=== PATIENT | female | born 1945 | race Caucasian/White ===

== ENCOUNTER 2017-02-13 15:20 | Emergency (ER) | payer MEDICARE, OTHER ==
[~2017-02-13] VITALS: Ht 154.9 cm; Wt 55.5 kg
[2017-02-13 15:38] VITALS: BP 101/59; PULSE 85; RESP 12; TEMP 97.7; O2SAT 96
--- NOTE | 2017-02-13 16:31 | PD ---
HPI Chief Complaint: Psychiatric Symptoms Time Seen by Provider: 15:54 Travel History International Travel<30 days: No Contact w/Intl Traveler<30days: No Traveled to known affect area: No History of Present Illness HPI 71-year-old female presents to the emergency Department under Burd[place] act by local police. Apparently, the patient states she got into an argument with her son and stated that she wished she was . However, she states she stated this out of anger and did not mean it. She denies any suicidal or homicidal ideation. On exam, Patient has ecchymosis to the right upper eyelid. She states that she fell and hit her head against a counter a few days ago. She denies any LOC or pain. Patient denies take any anticoagulants. She does not wish for this to be examined. Patient states she drinks 2 vodka drinks daily. She denies any illicit drug use. She has no medical complaints at this time. PFSH Past Medical History Anxiety: Yes Depression: Yes High Cholesterol: Yes Hypertension: Yes Thyroid Disease: Yes Tetanus Vaccination: > 5 Years Influenza Vaccination: Yes Menopausal: Yes : 3 Para: 2 Miscarriage: 1 : 0 Past Surgical History Appendectomy: Yes Hysterectomy: Yes Tonsillectomy: Yes Family History Family Myocardial Infarction: Yes Family Hypercholesterolemia: Yes Social History Alcohol Use: Yes Tobacco Use: Yes (1 PPD) Substance Use: No Allergies-Medications (Allergen,Severity, Reaction): Coded Allergies: No Known Allergies (Unverified , 02/13/17) Review of Systems Except as stated in HPI: all other systems reviewed are Neg Physical Exam Narrative GENERAL: Well-nourished, well-developed female patient, Afebrile. SKIN: Focused skin assessment warm/dry. Patient has ecchymosis to right upper eyelid/orbit. HEAD: Normocephalic. EYES: No scleral icterus. No injection or drainage. NECK: Supple, trachea midline. No JVD or lymphadenopathy. CARDIOVASCULAR: Regular rate and rhythm without murmurs, gallops, or rubs. RESPIRATORY: Breath sounds equal bilaterally. No accessory muscle use. Lungs sounds are clear to auscultation. GASTROINTESTINAL: Abdomen soft, non-tender, nondistended. MUSCULOSKELETAL: No cyanosis, or edema. PSYCHIATRIC: No delusional thought processes. No hallucinations. Data Data Last Documented VS Vital Signs Date Time Temp Pulse Resp B/P (MAP) Pulse Ox O2 Delivery O2 Flow Rate FiO2 02/13/17 15:38 97.7 85 12 101/59 (73) 96 Orders Orders Complete Blood Count With Diff (02/13/17 15:53) Comprehensive Metabolic Panel (02/13/17 15:53) Psych Screen (02/13/17 15:53) Drug Screen, Random Urine (02/13/17 15:53) Alcohol (Ethanol) (02/13/17 15:53) Salicylates (Aspirin) (02/13/17 15:53) Tylenol (Acetaminophen) (02/13/17 15:53) Urinalysis - C+S If Indicated (02/13/17 15:54) Diet Regular Basic (02/13/17 Dinner) Nicotine 7 Mg Patch.24 Hr (Habitrol 7 M (02/13/17 17:30) Urine Culture (02/13/17 19:02) Labs Laboratory Tests Test 02/13/17 16:30 02/13/17 19:02 White Blood Count 7.2 TH/MM3 Red Blood Count 5.02 MIL/MM3 Hemoglobin 15.8 GM/DL Hematocrit 47.4 % Mean Corpuscular Volume 94.5 FL Mean Corpuscular Hemoglobin 31.5 PG Mean Corpuscular Hemoglobin Concent 33.4 % Red Cell Distribution Width 15.4 % Platelet Count 278 TH/MM3 Mean Platelet Volume 8.6 FL Neutrophils (%) (Auto) 59.0 % Lymphocytes (%) (Auto) 34.6 % Monocytes (%) (Auto) 2.8 % Eosinophils (%) (Auto) 2.4 % Basophils (%) (Auto) 1.2 % Neutrophils # (Auto) 4.2 TH/MM3 Lymphocytes # (Auto) 2.5 TH/MM3 Monocytes # (Auto) 0.2 TH/MM3 Eosinophils # (Auto) 0.2 TH/MM3 Basophils # (Auto) 0.1 TH/MM3 CBC Comment DIFF FINAL Differential Comment Blood Urea Nitrogen 18 MG/DL Creatinine 0.99 MG/DL Random Glucose 136 MG/DL Total Protein 8.2 GM/DL Albumin 3.9 GM/DL Calcium Level 9.0 MG/DL Alkaline Phosphatase 80 U/L Aspartate Amino Transf (AST/SGOT) 20 U/L Alanine Aminotransferase (ALT/SGPT) 14 U/L Total Bilirubin 0.3 MG/DL Sodium Level 139 MEQ/L Potassium Level 4.0 MEQ/L Chloride Level 101 MEQ/L Carbon Dioxide Level 28.0 MEQ/L Anion Gap 10 MEQ/L Estimat Glomerular Filtration Rate 55 ML/MIN Salicylates Level 3.0 MG/DL Acetaminophen Level LESS THAN 2.0 MCG/ML Ethyl Alcohol Level 141 MG/DL Urine Color YELLOW Urine Turbidity CLOUDY Urine pH 5.5 Urine Specific [place] 1.024 Urine Protein TRACE mg/dL Urine Glucose (UA) NEG mg/dL Urine Ketones NEG mg/dL Urine Occult Blood TRACE Urine Nitrite NEG Urine Bilirubin NEG Urine Urobilinogen LESS THAN 2.0 MG/DL Urine Leukocyte Esterase SMALL Urine RBC 2 /hpf Urine WBC 12 /hpf Urine Squamous Epithelial Cells 29 /hpf Urine Bacteria MOD /hpf Urine Mucus MOD /lpf Microscopic Urinalysis Comment CULTURE INDICATED Urine Opiates Screen NEG Urine Barbiturates Screen NEG Urine Amphetamines Screen NEG Urine Benzodiazepines Screen NEG Urine Cocaine Screen NEG Urine Cannabinoids Screen NEG MDM Medical Decision Making Medical Screen Exam Complete: Yes Emergency Medical Condition: Yes Medical Record Reviewed: Yes Differential Diagnosis Depression versus anxiety versus medical clearance Narrative Course 71-year-old female presents to the emergency Department under Burdick act by local police. Patient denies suicidal or homicidal ideation. She has no medical complaints at this time. CBC, CMP, salicylate level, acetaminophen level, alcohol level, urine drug screen, UA are ordered and pending. CBC shows no acute abnormality. CMP shows no acute abnormality. Salicylate level is 3.0. Acetaminophen level is less than 2.0. Alcohol level is 141. UDS is negative. UA shows cloudy urine, trace occult blood, small leukocyte esterase, 12 WBC. However, significantly contaminated with 29 squamous epithelial cells. Patient is given Macrobid 100 mg by mouth. Patient is medically cleared for psychiatric screening and disposition. Mental health screening discussed with the patient. Psychiatric screen ordered. Diagnosis Primary Impression: Medical clearance for psychiatric admission Additional Instructions: Patient is medically cleared for psychiatric screening and disposition Condition: Stable Zaira Cleveland Feb 13, 2017 16:30
[2017-02-13 16:42] LABS: AUTOMATED NEUTROPHIL # 4.2 TH/MM3 (1.8-7.7); BASOPHIL # 0.1 TH/MM3 (0-0.2); BASOPHIL % 1.2 % (0.0-2.0); EOSINOPHIL # 0.2 TH/MM3 (0-0.4); EOSINOPHIL % 2.4 % (0.0-4.0); HEMATOCRIT 47.4 % (35.0-46.0); HEMO FLAGS DIFF FINAL; LYMPH % 34.6 % (9.0-44.0); LYMPHOCYTE # 2.5 TH/MM3 (1.0-4.8); MEAN CELL VOLUME 94.5 FL (80.0-100.0); MEAN CORPUSCULAR HEMOGLOBIN 31.5 PG (27.0-34.0); MEAN CORPUSCULAR HGB CONC 33.4 % (32.0-36.0); MONO % 2.8 % (0.0-8.0); PLATELET COUNT 278 TH/MM3 (150-450); RED BLOOD COUNT 5.02 MIL/MM3 (4.00-5.30); RED CELL DISTRIBUTION WIDTH 15.4 % (11.6-17.2); WHITE BLOOD COUNT 7.2 TH/MM3 (4.0-11.0)
[2017-02-13 17:04] LABS: ALT (GPT) 14 U/L (10-53); ANION GAP 10 MEQ/L (5-15); AST (GOT) 20 U/L (15-37); BLOOD UREA NITROGEN 18 MG/DL (7-18); CHLORIDE 101 MEQ/L (98-107); GLOMERULAR FILTRATION RATE 55 ML/MIN (>89); SODIUM (NA) 139 MEQ/L (136-145)
[2017-02-13 17:06] LABS: ALKALINE PHOSPHATASE 80 U/L (45-117); TOTAL BILIRUBIN ADULT 0.3 MG/DL (0.2-1.0)
[2017-02-13 17:09] LABS: ALCOHOL 141 MG/DL (0-5)
[2017-02-13 17:10] LABS: ACETAMINOPHEN LESS THAN 2.0 MCG/ML (10.0-30.0)
[2017-02-13] MEDS ORDERED: NICOTINE 7 MG/24 HR PATCH T-DERMAL ONE (17:30)
[2017-02-13 19:54] LABS: BACTERIA, URINE MOD /hpf; BLOOD, URINE TRACE (NEG); COMMENT (UR) CULTURE INDICATED; CULTURE IF INDICATED CULTURE INDICATED; GLUCOSE,URINE NEG (NEG); KETONE, URINE NEG (NEG); MUCUS URINE MOD /lpf (OCC); NITRITE,URINE NEG (NEG); PH, URINE 5.5 (5.0-8.5); SQUAMOUS EPITHELIAL CELL URINE 29 /hpf (0-5); URINE COLOR YELLOW (YELLW/STRAW)
[2017-02-13] MEDS ORDERED: NITROFURANTOIN MONOHYD MACROCR 100 MG CAP PO ONE (20:15)
[2017-02-13 21:08] VITALS: BP 176/76; PULSE 68; RESP 18; O2SAT 98
[2017-02-13 22:19] VITALS: BP 190/75; PULSE 65; RESP 18; O2SAT 96
[2017-02-13] MEDS ORDERED: SPIRCAP INH (22:29)
[2017-02-13] MEDS ORDERED: GABA300C5 PO (22:29)
[2017-02-13] MEDS ORDERED: DULO1CAP2 PO (22:29)
[2017-02-13] MEDS ORDERED: FLUT1INH7 INH (22:29)
[2017-02-13] MEDS ORDERED: TRIAM.1%T TOPICAL (22:29)
[2017-02-13] MEDS ORDERED: ALBUAER3 INH (22:29)
[2017-02-13] MEDS ORDERED: ROPI2TAB PO (22:29)
[2017-02-13] MEDS ORDERED: IBUP-232 PO (22:29)
[2017-02-13] MEDS ORDERED: CLOB0.055 TOPICAL (22:29)
[2017-02-13] MEDS ORDERED: ISOS20TA PO (22:29)
[2017-02-13] MEDS ORDERED: LEVO50TA4 PO (22:29)
[2017-02-14 02:31] VITALS: BP 135/63; PULSE 75; RESP 18; O2SAT 95
[2017-02-14 06:39] VITALS: BP 189/90; PULSE 68; RESP 19; O2SAT 96
--- NOTE | 2017-02-14 08:25 | RADRPT ---
EXAM DATE/TIME: 02/14/2017 07:53 [facility] COMPARISON: No previous studies available for comparison. INDICATIONS : Right leg pain. MEDICAL HISTORY : Hypercholesterolemia. Hypertension. SURGICAL HISTORY : Tonsillectomy. Appendectomy. Hysterectomy. ENCOUNTER: Initial ACUITY: 1 day PAIN SCORE: 5/10 LOCATION: Right leg. TECHNIQUE: Venous ultrasound of the leg was performed from the inguinal ligament to the proximal calf. Real-jen e, color Doppler and spectral tracing, compression and augmentation techniques were used. FINDINGS: There is normal compressibility of the deep venous system from the inguinal region to the proximal ca lf. No echogenic clot is seen in the lumen of the common femoral, femoral, popliteal, and posterior tibial veins. There is a normal response of the venous system to proximal and distal augmentation an d respiration. CONCLUSION: Normal examination. No evidence of DVT Alfredo Marie MD on February 14, 2017 at 8:23 Board Certified Radiologist. This report was verified electronically.
--- NOTE | 2017-02-14 09:34 | PD ---
Physical Exam Date Seen by Provider: Feb 14, 2017 Time Seen by Provider: 09:31 Narrative 71 yr old female here for psychiatric issues. I was asked by the nurse to check on patient's right leg as she has pain and hx of DVT. She reports pain in the right calf and says it feels tight. Refer to her H&P from the previous provider for full details of her current hospital visit. Data Data Last Documented VS Vital Signs Date Time Temp Pulse Resp B/P (MAP) Pulse Ox O2 Delivery O2 Flow Rate FiO2 02/14/17 12:15 02/14/17 06:39 68 19 96 Room Air 02/13/17 15:38 97.7 Orders Orders Complete Blood Count With Diff (02/13/17 15:53) Comprehensive Metabolic Panel (02/13/17 15:53) Psych Screen (02/13/17 15:53) Drug Screen, Random Urine (02/13/17 15:53) Alcohol (Ethanol) (02/13/17 15:53) Salicylates (Aspirin) (02/13/17 15:53) Tylenol (Acetaminophen) (02/13/17 15:53) Urinalysis - C+S If Indicated (02/13/17 15:54) Diet Regular Basic (02/13/17 Dinner) Nicotine 7 Mg Patch.24 Hr (Habitrol 7 M (02/13/17 17:30) Urine Culture (02/13/17 19:02) Nitrofurantoin Monohyd Macrocr (Macrobid (02/13/17 20:15) Ropinirole Hcl (Requip) (02/13/17 23:00) Diet Regular Basic (02/14/17 Breakfast) Us Leg Venous Doppler (02/14/17 07:26) Labs Laboratory Tests Test 02/13/17 16:30 02/13/17 19:02 White Blood Count 7.2 TH/MM3 Red Blood Count 5.02 MIL/MM3 Hemoglobin 15.8 GM/DL Hematocrit 47.4 % Mean Corpuscular Volume 94.5 FL Mean Corpuscular Hemoglobin 31.5 PG Mean Corpuscular Hemoglobin Concent 33.4 % Red Cell Distribution Width 15.4 % Platelet Count 278 TH/MM3 Mean Platelet Volume 8.6 FL Neutrophils (%) (Auto) 59.0 % Lymphocytes (%) (Auto) 34.6 % Monocytes (%) (Auto) 2.8 % Eosinophils (%) (Auto) 2.4 % Basophils (%) (Auto) 1.2 % Neutrophils # (Auto) 4.2 TH/MM3 Lymphocytes # (Auto) 2.5 TH/MM3 Monocytes # (Auto) 0.2 TH/MM3 Eosinophils # (Auto) 0.2 TH/MM3 Basophils # (Auto) 0.1 TH/MM3 CBC Comment DIFF FINAL Differential Comment Blood Urea Nitrogen 18 MG/DL Creatinine 0.99 MG/DL Random Glucose 136 MG/DL Total Protein 8.2 GM/DL Albumin 3.9 GM/DL Calcium Level 9.0 MG/DL Alkaline Phosphatase 80 U/L Aspartate Amino Transf (AST/SGOT) 20 U/L Alanine Aminotransferase (ALT/SGPT) 14 U/L Total Bilirubin 0.3 MG/DL Sodium Level 139 MEQ/L Potassium Level 4.0 MEQ/L Chloride Level 101 MEQ/L Carbon Dioxide Level 28.0 MEQ/L Anion Gap 10 MEQ/L Estimat Glomerular Filtration Rate 55 ML/MIN Salicylates Level 3.0 MG/DL Acetaminophen Level LESS THAN 2.0 MCG/ML Ethyl Alcohol Level 141 MG/DL Urine Color YELLOW Urine Turbidity CLOUDY Urine pH 5.5 Urine Specific [place] 1.024 Urine Protein TRACE mg/dL Urine Glucose (UA) NEG mg/dL Urine Ketones NEG mg/dL Urine Occult Blood TRACE Urine Nitrite NEG Urine Bilirubin NEG Urine Urobilinogen LESS THAN 2.0 MG/DL Urine Leukocyte Esterase SMALL Urine RBC 2 /hpf Urine WBC 12 /hpf Urine Squamous Epithelial Cells 29 /hpf Urine Bacteria MOD /hpf Urine Mucus MOD /lpf Microscopic Urinalysis Comment CULTURE INDICATED Urine Opiates Screen NEG Urine Barbiturates Screen NEG Urine Amphetamines Screen NEG Urine Benzodiazepines Screen NEG Urine Cocaine Screen NEG Urine Cannabinoids Screen NEG [facility] Medical Record Reviewed: Yes Supervised Visit with ANGÉLICA: No Narrative Course Last Impressions Lower Extremity Ultrasound 02/14/17 0726 Signed Impressions: Service Date/Time: Tuesday, February 14, 2017 07:53 - CONCLUSION: Normal examination. No evidence of DVT Alfredo Marie MD Discussed negative results with patient. Will provide her with Tylenol or Motrin as needed for pain. 1140: I discussed the case with Laura White psychiatric nurse practitioner and Burdick act has been lifted. Patient does not have a suicidal or homicidal ideation. Her medications were adjusted. Her son will ensure follow-up. I have also seen the patient. She is not suicidal or homicidal. She tells me she is ready to go home. Her son will be assisting her with discharge and follow-up with primary care provider in psychiatry. Patient cleared for discharge. Diagnosis Primary Impression: Medical clearance for psychiatric admission Referrals: Psychiatrist Patient Instructions: General Instructions Additional Instruction: Follow up with your primary care provider. Make an appointment with the psychiatrist. Disposition: 01 DISCHARGE HOME Condition: Stable Tiarra Curtis Feb 14, 2017 09:34
--- NOTE | 2017-02-14 11:40 | PD ---
History of Present Illness Chief Complaint: Psychiatric Symptoms Time Seen by Provider: 11:10 Travel History International Travel<30 Days: No Contact w/Intl Traveler<30days: No Known affected area: No Legal Status Legal Status: Burdick Act Burdick Act Signed By: Alcon Arreola Burdick Act Comment: 02/14/2017 125 pm History of Present Illness: History of Present Illness 71-year-old female with no previous psychiatric history who presents to the emergency Department under [place] act by local police. The BA alleges that she made suicidal statements. Apparently, the patient was involved in an argument with her son and stated that she wished she was . However, she states she stated this out of anger and did not mean it. She denies any suicidal or homicidal ideation. EMR is reviewed.. No previous contact with [facility] psychiatry. Current BAL is 141. Patient seen. She is clinically sober. She is ambulating well with no disturbance in gait. Her speech is clear and logical. There is no psychosis and no dean. She admits feeling depressed after the of her in January 2016 . She has been prescribed Cymbalta and reports compliance with such. She denies any suicidal or homicidal ideation, intent or plan. She also admits to drinking alcohol " more than I should". She is agreeable to following up with her outpatient provider as well as seeking counseling services. She is requesting discharge and tells me that her nephew is staying with her . She has a niece that is coming to [place] to stay with her as well and the plan is for her to move in with her in [place]. Collateral obtained from son Isaias. Discussed discharge plan. He has no concerns if she is discharged. He would like for her to follow up with outpatient psychiatrist. PFS Past Medical History Anxiety: Yes Depression: Yes High Cholesterol: Yes Hypertension: Yes Thyroid Disease: Yes Tetanus Vaccination: > 5 Years Influenza Vaccination: Yes Menopausal: Yes : 3 Para: 2 Miscarriage: 1 : 0 Past Surgical History Appendectomy: Yes Hysterectomy: Yes Tonsillectomy: Yes Psychiatric History Psychiatric History Hx Psychiatric Treatment: Patient with a visit 1 month ago to a counselor in [place] with no follow appointment made. She he states she went for depression counseling due to her drinking. History of Inpatient Treatment: No Guns or firearms in home: No Social History x 1 year after a 55 year marriage. She is retired and lives by herself. Hx Alcohol Use: Yes Hx Tobacco Use: Yes (1 PPD) Hx Substance Use: Yes (vodka 2-3 glasses, 1ppd) Substance Use Type: Alcohol, Nicotine/Cigarettes Hx of Substance Use Treatment: No Family Psychiatric History Negative Allergies-Medications (Allergen,Severity, Reaction): Coded Allergies: No Known Allergies (Unverified , 02/13/17) Reported Meds & Prescriptions Reported Meds & Active Scripts Active Reported Proair Hfa 8.5 GM Inh (Albuterol Sulfate) 90 Mcg/Act Aer 1 Puff INH Q4HR PRN 108 mcg/actuation Ibuprofen 600 Mg Tab 600 Mg PO TID Triamcinolone Topical (Triamcinolone Acetonide) 0.1 % Oint 1 Applic TOPICAL BID APPLY TOPICALLY TO AFFECTED AFFECTED AREA(S) TWICE A DAY. Spiriva Handihaler (Tiotropium Inh) 18 Mcg Cap 18 Mcg INH DAILY 1 capsule = 18 mcg Ropinirole 2 Mg Tab 2 Mg PO BID Isosorbide Mononitrate 20 Mg Tab 30 Mg PO BID Take 2 doses 7 hours apart. Gabapentin 300 Mg Cap 300 Mg PO BID Clobetasol Topical (Clobetasol Propionate) 0.05% Cream 1 Applic TOPICAL BID APPLY TOPICALLY TO AFFECTED AREA(S) TWICE A DAY, 8AM, 8PM Breo Ellipta Inh (Fluticasone/Vilanterol) 200-25 Mcg/Act Inh 1 Puff INH DAILY Use daily at the same time. Duloxetine DR (Duloxetine HCl) 30 Mg Capdr 30 Mg PO DAILY Levothyroxine (Levothyroxine Sodium) 50 Mcg Tab 50 Mcg PO DAILY@0600 Review of Systems Hematologic/lymphatic: COMPLAINS OF: Bruising (left eye after fall. ) Exam Alert: Yes Robinson: Person (ox4) Mood: Depressed Affect: Tearful Speech: Clear, Logical Eye Contact: Normal Memory Intact: Comment (not impaired) Hallucinations: Other (Negative) Delusions: No Suicidal: Ideation (deneis any) Homicidal: Ideation (dneis any) Insight/Judgement Fair. Not impaired. MDM Medical Decision Making Medical Record Reviewed: Yes Assessment/Plan 71-year-old female with no previous psychiatric history who presents to the emergency Department under [place] act by local police. The BA alleges that she made suicidal statements. After she was clinically sober she denies any suicidal or homicidal ideation. She is requesting discharge from the hospital and does not meet BA criteria. She is willing to follow up with outpatient provider. I have counseled her regarding alcohol use. I have advised to increase the Cymbalta to 60 mg po q day. She has enough at home Cleared for discharge from psychiatry. Lift BA Orders Orders Complete Blood Count With Diff (02/13/17 15:53) Comprehensive Metabolic Panel (02/13/17 15:53) Psych Screen (02/13/17 15:53) Drug Screen, Random Urine (02/13/17 15:53) Alcohol (Ethanol) (02/13/17 15:53) Salicylates (Aspirin) (02/13/17 15:53) Tylenol (Acetaminophen) (02/13/17 15:53) Urinalysis - C+S If Indicated (02/13/17 15:54) Diet Regular Basic (02/13/17 Dinner) Nicotine 7 Mg Patch.24 Hr (Habitrol 7 M (02/13/17 17:30) Urine Culture (02/13/17 19:02) Nitrofurantoin Monohyd Macrocr (Macrobid (02/13/17 20:15) Ropinirole Hcl (Requip) (02/13/17 23:00) Diet Regular Basic (02/14/17 Breakfast) Us Leg Venous Doppler (02/14/17 07:26) Diet Regular Basic (02/14/17 Lunch) Results Vital Signs Date Time Temp Pulse Resp B/P (MAP) Pulse Ox O2 Delivery O2 Flow Rate FiO2 02/14/17 06:39 68 19 189/90 (123) 96 Room Air 02/14/17 02:31 75 18 135/63 (87) 95 Room Air 02/13/17 22:19 65 18 190/75 (113) 96 Room Air 02/13/17 21:08 68 18 176/76 (109) 98 Room Air 02/13/17 15:38 97.7 85 12 101/59 (73) 96 Laboratory Tests Test 02/13/17 16:30 02/13/17 19:02 White Blood Count 7.2 Red Blood Count 5.02 Hemoglobin 15.8 Hematocrit 47.4 Mean Corpuscular Volume 94.5 Mean Corpuscular Hemoglobin 31.5 Mean Corpuscular Hemoglobin Concent 33.4 Red Cell Distribution Width 15.4 Platelet Count 278 Mean Platelet Volume 8.6 Neutrophils (%) (Auto) 59.0 Lymphocytes (%) (Auto) 34.6 Monocytes (%) (Auto) 2.8 Eosinophils (%) (Auto) 2.4 Basophils (%) (Auto) 1.2 Neutrophils # (Auto) 4.2 Lymphocytes # (Auto) 2.5 Monocytes # (Auto) 0.2 Eosinophils # (Auto) 0.2 Basophils # (Auto) 0.1 CBC Comment DIFF FINAL Differential Comment Blood Urea Nitrogen 18 Creatinine 0.99 Random Glucose 136 Total Protein 8.2 Albumin 3.9 Calcium Level 9.0 Alkaline Phosphatase 80 Aspartate Amino Transf (AST/SGOT) 20 Alanine Aminotransferase (ALT/SGPT) 14 Total Bilirubin 0.3 Sodium Level 139 Potassium Level 4.0 Chloride Level 101 Carbon Dioxide Level 28.0 Anion Gap 10 Estimat Glomerular Filtration Rate 55 Salicylates Level 3.0 Acetaminophen Level LESS THAN 2.0 Ethyl Alcohol Level 141 Urine Color YELLOW Urine Turbidity CLOUDY Urine pH 5.5 Urine Specific [place] 1.024 Urine Protein TRACE Urine Glucose (UA) NEG Urine Ketones NEG Urine Occult Blood TRACE Urine Nitrite NEG Urine Bilirubin NEG Urine Urobilinogen LESS THAN 2.0 Urine Leukocyte Esterase SMALL Urine RBC 2 Urine WBC 12 Urine Squamous Epithelial Cells 29 Urine Bacteria MOD Urine Mucus MOD Microscopic Urinalysis Comment CULTURE INDICATED Urine Opiates Screen NEG Urine Barbiturates Screen NEG Urine Amphetamines Screen NEG Urine Benzodiazepines Screen NEG Urine Cocaine Screen NEG Urine Cannabinoids Screen NEG Date/Time Source Procedure Growth Status 02/13/17 19:02 Urine Clean Catch Urine Culture Pending Received Diagnosis Primary Impression: Adjustment disorder Additional Impressions: Medical clearance for psychiatric admission Alcohol abuse Psychiatrically Cleared: Yes Additional Instructions: Patient is medically cleared for psychiatric screening and disposition Med/ Other Pt Specific Info: Existing Med Changed (Increase Cymbalta to 60 mg po q day) Disposition: 01 DISCHARGE HOME Condition: Stable Problem Qualifiers Primary Impression: Adjustment disorder Qualified Codes: F43.21 - Adjustment disorder with depressed mood Laura White [facility] Feb 14, 2017 11:40
== END 2017-02-14 12:16 | disposition home or self-care (01) ==
LOC: NEPD 15:20 → NEPJ 02-14 12:16
DX: F43.20 Adjustment disorder, unspecified (principal); F10.10 Alcohol abuse, uncomplicated; M79.604 Pain in right leg; B96.89 Other specified bacterial agents as the cause of diseases classified elsewhere; F41.9 Anxiety disorder, unspecified; F32.9 Major depressive disorder, single episode, unspecified; I10 Essential (primary) hypertension; Z86.718 Personal history of other venous thrombosis and embolism; Z79.899 Other long term (current) drug therapy
CPT/HCPCS: 80053; 80307; 81001; 85025; 87086; 93971; 99285